=== PATIENT | male | born 1955 | race Caucasian/White ===

== ENCOUNTER 2018-09-02 15:57 | Emergency (ER) | payer OTHER, SELFPAY ==
[2018-09-02 15:58] VITALS: PULSE 77; RESP 18; TEMP 36.5; O2SAT 96; BMI 29.2
--- NOTE | 2018-09-02 16:07 | RAD_ITS ---
STUDY: X-RAY CHEST REASON FOR EXAM: Male, 62 years old. Chest pain radiating into the left arm. TECHNIQUE: Portable chest. COMPARISON: 03/07/2017. FINDINGS: The lungs are clear and expanded. There is no demonstrated pleural abnormality. Normal size heart. Normal mediastinum and tomasa. Normal visualized pulmonary arteries. Normal visualized aortic arch and descending thoracic aorta. Normal visualized thoracic spine. Normal visualized ribs, clavicles, and shoulders. There is no demonstrated abnormality of the visualized soft tissue structures of the upper abdomen. RAD/Chest 1 View (Portable) IMPRESSION: Normal x-ray examination of the chest. Electronically Signed: Suzanne Gaines MD at 16:26 EST Tel , Service support ,
--- NOTE | 2018-09-02 16:07 | EKG12_ITS ---
Test Reason : CP Blood Pressure : / mmHG Vent. Rate : 075 BPM Atrial Rate : 075 BPM P-R Int : 184 ms QRS Dur : 084 ms QT Int : 390 ms P-R-T Axes : 064 052 045 degrees QTc Int : 435 ms Normal sinus rhythm Nonspecific ST abnormality Abnormal ECG Confirmed by KATIE HOOPER, KRIS ([id number]), editorial manager HYUN THEODORE ([id number] on 09/04/2018 10:04:29 AM Referred By: BENNETT Confirmed By:KRIS WILSON MD
--- NOTE | 2018-09-02 16:16 | ED.DCSUM_ITS ---
- ER Visit Summary Date of Service: 09/02/18 Chief Complaint: Left jaw and shoulder pain post exercising History of Present Illness: The patient is a 62 M no history of coronary disease. He had a negative heart cath about 12 years ago but has had no cardiac catheter or stress test since that time. His father had coronary disease and a quadruple bypass in his 50's withseveral MIs and at age 65 of cardiac disease and TN. He states intermittently only several times in the last several months he gets left shoulder and jaw pain with exertion. No chest pain. No dyspnea. No diaphoresis. No nausea. He works out frequently and said most the time he does not have any problem. Today he did about 20 minutes on a treadmill after he was done developed left shoulder and jaw discomfort he will call if pain eventually the jaw discomfort resolved he still having some shoulder discomfort. No chest pain. No dyspnea. Physical Examination: Well-appearing male vital signs are stable. He is afebrile. His pulse ox is 96% on room air no hypoxia. HEENT exam unremarkable. Neck nontender no lymphadenopathy. Lungs clear to auscultation bilaterally. Heart regular rhythm no murmur. Rate about 75. Chest wall nontender. No ecchymosis or bruising. No subcu air. Abdomen soft nontender. Normal bowel sounds no peritoneal signs. Extremities moves all 4. Equal symmetrical radial pulses. Calves nontender without edema or cords. Neurologically is awake and alert with no focal motor or sensory deficits. Test Results: Chest x-ray no acute abnormality read by myself and the radiologist. Portable one view. EKG sinus rhythm rate of 75 no acute signs of TN or ischemia. CBC normal at 8. Hemoglobin 14. Chemistries normal creatinine 1.39. Troponin less than 0.015. Emergency Department Course and Treatment: Patient undergo a cardiac workup. P.o. aspirin. Repeat exam patient is doing well at 1700. He is symptom-free. He and I went over all his test. 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 I explained to him that my concern is this was exertional and even with a negative workup he could have underlying coronary disease. He understands that but absolutely does not want to be admitted. He is willing to sign out AGAINST MEDICAL ADVICE he has an appointment to see his primary care physician Dr. Sen Maldonado tomorrow. I will speak to the physician on-call who agreed. Treatment Plan: Signed out AMA. Continue with daily aspirin. No exercise or heavy exertion. We will see his primary care physician tomorrow and follow-up closely with provocative cardiac testing. Disposition: Discharge AMA Impression: Exertional left jaw and shoulder discomfort of uncertain etiology Signed out AMA This note was generated with [employer] dictation software. It may contain incorrect words, spelling, and punctuation that were not noted in review of the chart prior to signing ED Disposition - Plan for ED Patient: Referrals: Sen Maldonado MD [Primary Care Provider] -
[2018-09-02 16:31] LABS: Absolute Lymphocyte Count 2.38 X10^3/ul (0.83-4.51); Absolute Neutrophil Count 5.5 X10^3/uL (2.0-7.7); Basophil# 0.01 X10^3/uL; Basophil% 0.1 % (0-1); Eosinophil# 0.11 X10^3/uL; Eosinophils% 1.3 % (0-5); Hematocrit 44.2 % (40-54); Hemoglobin 14.4 g/dl (13.0-16.5); Lymphocyte # 2.38 X10^3/ul (4.0); Lymphocyte % 27.6 % (19-41); Mean Corp Hgb Conc 32.6 g/gl (32-36); Mean Corpuscular Hgb 31.3 pg (27.0-32.0); Mean Corpuscular Volume 96.1 fL (80-94); Mean Platelet Vol. 10.3 fl (6.2-12.0); Monocyte# 0.62 X10^3/uL; Monocyte% 7.2 % (0-10); Neutrophil % 63.7 % (47-70); Platelet Count 200 K/mm3 (150-450); RBC Distribution Width CV 13.2 % (11.6-14.6); White Blood Count 8.6 K/mm3 (4.4-11.0)
[2018-09-02] MEDS: Aspirin 81 MG TAB.CHEW 324 MG PO (16:38)
--- NOTE | 2018-09-02 16:38 | ED.RN ---
PT PREVIOUSLY TOOK 81 ASA. 1 81 MG TABLET HELD
[2018-09-02 16:41] LABS: POSITIVE COUNT NO; POSITIVE DIFFERENTIAL NO; POSITIVE MORPHOLOGY NO
[2018-09-02 16:45] LABS: Anion Gap 9 (5-15); BUN 15 mg/dL (7-18); BUN/Creat Ratio 10.8 RATIO (10-20); Calcium,Total 8.9 mg/dL (8.5-10.1); Chloride 101 mmol/L (98-107); Creatinine, Serum 1.39 mg/dL (0.70-1.30); EST Glomerular Filtration Rate 55 mL/min (>60); Est Glom Filt Rate - Afr Amer 67 mL/min (>60); Estimated Creatinine Clearance 70.33 ml/min; Glucose 126 mg/dL (74-106); Potassium 3.8 mmol/L (3.5-5.1); Sodium Level 141 mmol/L (136-145)
--- NOTE | 2018-09-02 17:03 | ED.DEP ---
ED Disposition - Plan for ED Patient: Disposition: Home or Assisted Living Instructions: ED Chest Pain Atypical Unkn Cause Referrals: Sen Maldonado MD [Primary Care Provider] - Keep Agustín appointment Additional Instructions: Return if feeling worse, chest pain, shortness of breath, arm pain or exertional nausea. No working out or heavy exertion until have either outpatient stress testing or heart catheterization. Continue your daily aspirin. See her primary care physician with your scheduled appointment tomorrow. Discussed with him cardiac evaluation follow-up such as either stress test or heart cath.
[2018-09-02 17:29] VITALS: BP 120/64; PULSE 65; RESP 18; O2SAT 98
== END 2018-09-02 17:30 | disposition home or self-care (01) ==
PROVIDERS: Emergency Provider Emergency Medicine; Family Provider Family Medicine; PCP Family Medicine
DX: R68.84 Jaw pain (principal); M25.512 Pain in left shoulder; Z53.21 Procedure and treatment not carried out due to patient leaving prior to being seen by health care provider; I49.3 Ventricular premature depolarization; Z79.82 Long term (current) use of aspirin; Z82.49 Family history of ischemic heart disease and other diseases of the circulatory system
CPT/HCPCS: 71045; 80048; 84484; 85025; 93005; 99285; A4216

== ENCOUNTER → 2018-09-09 06:44 | Outpatient (CLI) | payer OTHER, SELFPAY ==
[2018-09-02 15:58] VITALS: BMI 29.2
--- NOTE | 2018-09-09 09:46 | STRESSREP ---
Stress Test Report Exercise myocardial perfusion stress test. 62-year-old man with a history of chest pain. Stress protocol: Resting EKG demonstrates normal sinus rhythm with a rate of 66 bpm normal intervals are noted resting blood pressure 108/78 mmHg. The patient exercised according to the regular Carlos protocol for total duration of 6 minutes and 29 seconds. The maximum heart rate attained was 206 bpm which was a run of supraventricular tachyarrhythmia. This was 129% of maximum predicted heart rate the maximum workload was 7.7 metabolic equivalents. The test was terminated due to the supraventricular tachyarrhythmia. At rest there were no ST or T wave changes noted suggest ischemia at peak exercise and during the supraventricular tachyarrhythmia there was approximately 2.2-2.[address] depression noted in leads II, III and aVF and V3 through V6. There was ST elevation noted in aVR. Patient complained of slight shortness of breath. These returned back to baseline. The resting blood pressure 180/78 with a peak blood pressure 152/70. No clinical angina was noted. Myocardial perfusion protocol. 14.8 mCi of technetium 99m sestamibi was injected at rest. The patient exercised according to regular Carlos protocol for 6-1/2 minutes at peak exercise 44.7 mCi of technetium 99m sestamibi was injected stress images were obtained stress and rest images were reconstructed and compared in the short axis vertical long horizontal long axis. Gated images were also obtained Perfusion SPECT analysis: Review of the stress images demonstrate normal uptake of tracer noted in all areas of the myocardium. The resting images similarly demonstrate normal uptake of tracer noted in all areas of the myocardium. No areas of reversibility are noted suggest ischemia no previous infarct is noted. Gated SPECT analysis: The gated ejection fraction is noted to be 87%. Conclusion: Exercise myocardial perfusion stress test with EKG changes suggestive of ischemia in the face of a supraventricular tachyarrhythmia. Nuclear images demonstrate no evidence of ischemia. Preserved ejection fraction
== END ==
PROVIDERS: Family Provider Family Medicine; PCP Family Medicine; Referring Provider Family Medicine; Visit Provider Family Medicine
DX: M25.512 Pain in left shoulder (principal)
CPT/HCPCS: 78452; 93017; A9500; A4216

== ENCOUNTER 2018-09-13 10:44 | Day surgery (SDC) | payer OTHER, SELFPAY ==
[2018-09-11 16:10] VITALS: BMI 30.3
[2018-09-12 07:41] VITALS: BMI 30.3
--- NOTE | 2018-09-13 13:05 | CL.D_ITS ---
Patient Name: KRIS SERNA Study Date: 09/13/2018 Performing: Jeff Perez MD Ht: 77.16 inches 196 cm : 1955 Wt: 255.74 lbs 116 kg Age: 62 Gender: male BSA: 2.49 PROCEDURE(S) PERFORMED AE76-GLT/COR/LV CLINICAL PROFILE AND INDICATIONS Indications: Cardiac Arrythmia Heart Failure: None Stress/Imaging Date: 09/09/2018Stress Test with SPECT MPI: Negative CAD Presentations: Symptom unlikely to be ischemic. CONCLUSIONS Normal coronary arteries Normal LV size, wall motion,and systolic function RECOMMENDATIONS Medical therapy DESCRIPTION OF PROCEDURE The patient arrived to the procedure lab. The risks and benefits of the procedure as well as a full d escription of our services here and current unavailability of surgical backup were fully explained to the patient and/or their significant other prior to the catheterization. The Timeout was completed, verifying the correct patient and procedure. The patient's procedural site was prepped and draped in the usual fashion. Local anesthetic was given subcutaneously to right groin region with Lidocaine 2%. Using a modified Seldinger technique, arterial access was obtained via the right femoral artery, a 5 Fr sheath was inserted. Left Coronary Artery selective angiography was performed in multiple views u sing a 5 Fr. JL4 catheter. Right Coronary Artery selective angiography was then performed in multiple views using a 5 Fr. 3DRC (Michelet) catheter. Left Ventriculography was performed in ARIAS projection using a 5 Fr. Pigtail catheter.Contrast was injected through the sheath and the Right Iliac and Femoral artery were assessed for possible closure device.The arterial sheath was pulled and a Mynx closure device was deployed for hemostasis CORONARY ANGIOGRAPHY DOMINANCE: Right Dominant LEFT HEART ASSESSMENT Left Ventricular Ejection Fraction: by LV Gram 70 % Normal LV wall motion Normal Left Ventricular systolic function Normal Left Ventricular systolic function LEFT MAIN: Angiographically normal LEFT ANTERIOR DECENDING ARTERY: Angiographically normal CIRCUMFLEX ARTERY: Angiographically normal RIGHT CORONARY ARTERY: Angiographically normal COMPLICATIONS No Complications PROCEDURE MEDICATIONS Versed 1 mg IV Oxygen: 2 L/min via nasal cannula SUMMARY OF HEMODYNAMIC DATA Time AIR REST ECG 12:29:56 AO 106/64 (83) SA 12:44:34 LV 108/4, 24 12:49:52 LV 110/3, 24 12:49:59 LV 105/5, 19 12:51:16 Signed By Jeff Perez MD On 09/13/2018 1:04:43 PM Jeff Perez MD
== END 2018-09-13 15:37 | disposition home or self-care (01) ==
LOC: CLSP 10:46
PROVIDERS: Family Provider Family Medicine; PCP Family Medicine; Referring Provider Internal Medicine Cardiovascular Disease; Visit Provider Internal Medicine Cardiovascular Disease
DX: R94.39 Abnormal result of other cardiovascular function study (principal); I47.1 Supraventricular tachycardia; K21.9 Gastro-esophageal reflux disease without esophagitis; E66.9 Obesity, unspecified; Z68.30 Body mass index [BMI] 30.0-30.9, adult; Z79.82 Long term (current) use of aspirin; Z82.49 Family history of ischemic heart disease and other diseases of the circulatory system
CPT/HCPCS: 93458; 99152; 99153; C1760; J7040; Q9967

== ENCOUNTER → 2019-02-08 07:38 | Outpatient (CLI) | payer OTHER, SELFPAY ==
[2018-09-12 07:41] VITALS: BMI 30.3
[2019-02-08 08:46] LABS: Anion Gap 6 (5-15); BUN 17 mg/dL (7-18); BUN/Creat Ratio 14.7 RATIO (10-20); Calcium,Total 8.7 mg/dL (8.5-10.1); Chloride 107 mmol/L (98-107); Creatinine, Serum 1.16 mg/dL (0.70-1.30); EST Glomerular Filtration Rate 68 mL/min (>60); Est Glom Filt Rate - Afr Amer 82 mL/min (>60); Glucose 102 mg/dL (74-106); PSA,Total - Annual Screen 2.07 ng/mL (0.00-4.00); Potassium 3.9 mmol/L (3.5-5.1); Sodium Level 142 mmol/L (136-145)
== END ==
PROVIDERS: Family Provider Family Medicine; PCP Family Medicine; Referring Provider Family Medicine; Visit Provider Family Medicine
DX: Z12.5 Encounter for screening for malignant neoplasm of prostate (principal); K21.9 Gastro-esophageal reflux disease without esophagitis
CPT/HCPCS: 36415; 80048; 84153; G0103

== ENCOUNTER → 2021-03-08 06:05 | Outpatient (CLI) | payer BC, SELFPAY ==
[2021-03-08 08:01] LABS: ALB/GLOB Ratio 0.9 RATIO (0.9-2.4); AST(SGOT) 13 U/L (15-37); Alanine Aminotransfer ALT/SGPT 24 U/L (16-61); Albumin, Serum 3.6 g/dL (3.2-5.0); Alkaline Phosphatase 87 U/L (45-117); Anion Gap 4 (5-15); BUN 16 mg/dL (7-18); BUN/Creat Ratio 15.1 RATIO (10-20); Calcium,Total 8.2 mg/dL (8.5-10.1); Chloride 107 mmol/L (98-107); Cholesterol 147 mg/dL (200); Creatinine, Serum 1.06 mg/dL (0.70-1.30); EST Glomerular Filtration Rate 75 mL/min (>60); Est Glom Filt Rate - Afr Amer 90 mL/min (>60); Globulin 3.8 g/dL (2.2-4.2); Glucose 98 mg/dL (74-106); High Density Lipoprotein 53 mg/dL; Potassium 3.8 mmol/L (3.5-5.1); Protein, Total 7.4 g/dL (6.4-8.2); Sodium Level 139 mmol/L (136-145); Triglycerides 100 mg/dL; Very Low Density Lipoprotein 20 mg/dL (5-40)
== END ==
PROVIDERS: PCP Family Medicine; Referring Provider Family Medicine; Visit Provider Family Medicine
DX: Z13.220 Encounter for screening for lipoid disorders (principal); Z12.5 Encounter for screening for malignant neoplasm of prostate
CPT/HCPCS: 36415; 80053; 80061; 84153; G0103

== ENCOUNTER 2021-08-31 07:53 | Outpatient (CLI) | payer BC, SELFPAY ==
--- NOTE | 2021-08-31 08:00 | ECHOCS_ITS ---
Version 2 Reason For Study: Afib, Aflutter Procedure This was a 2D Doppler, Color Flow transthoracic echocardiogram. Contrast injection was performed. Exam performed in department. Left Ventricle Normal LV size. Left ventricular systolic function is normal. The estimated ejection fraction is 55 %. Stage 1 diastolic dysfunction. No regional wall motion abnormalities noted. Right Ventricle Normal RV size. Normal systolic function. Atria Normal left atrium. Normal right atrium. Bubble contrast study negative for right to left interatrial shunt. Mitral Valve Normal mitral valve. Tricuspid Valve Normal tricuspid valve. Aortic Valve Trisinus/trileaflet aortic valve. Pulmonic Valve Normal pulmonic valve. Great Vessels Normal aortic root. The pulmonary artery is normal size. Normal inferior vena cava. Pericardium/Pleural No pericardial effusion. Medication Performed a rapid injection of agitated mix of 9 cc saline and 1cc air to assess for atrial septal defect. Diluted definity 2ml given slow IV push to enhance endocardial definition. MMode/2D Measurements & Calculations LVIDd: 4.7 cm IVSd: 0.91 cm Ao root diam: 3.5 cm LVIDs: 2.7 cm LVPWd: 0.81 cm RVDd: 3.3 cm FS: 43.6 % LAV(MOD-bp): 42.3 ml LVAd ap4: 32.9 cm2 SV(MOD-sp4): 72.7 ml LAV(MOD-bp) Indexed: 16.8 ml/m2 LVLd ap4: 8.2 cm LAV(MOD-sp2): 51.6 ml EDV(MOD-sp4): 108.4 ml LAV(MOD-sp4): 34.1 ml EDV(sp4-el): 112.5 ml LVAs ap4: 16.1 cm2 LVLs ap4: 6.0 cm ESV(MOD-sp4): 35.6 ml ESV(sp4-el): 36.3 ml EF(MOD-sp4): 67.1 % EF(sp4-el): 67.7 % SV(sp4-el): 76.2 ml LA A4 area: 15.2 cm2 LA dimension(2D): 4.6 cm RA A4 area: 13.5 cm2 Doppler Measurements & Calculations MV E max abel: 61.5 cm/sec Lat Peak E' Abel: 7.7 cm/sec Med Peak E' Abel: 9.0 cm/sec MV A max abel: 55.5 cm/sec E/E' lat: 7.9 E/E' med: 6.9 MV E/A: 1.1 Ao V2 max: 120.2 cm/sec LV V1 max: 102.3 cm/sec PA V2 max: 92.5 cm/sec Ao max P.8 mmHg LV V1 max P.2 mmHg Ao V2 mean: 84.4 cm/sec Ao mean P.2 mmHg Ao V2 VTI: 25.5 cm PI end-d abel: 79.0 cm/sec ECHO/Echo Complete W/ Contrast Interpretation Summary Normal LV size. Left ventricular systolic function is normal. The estimated ejection fraction is 55 %. Stage 1 diastolic dysfunction. Bubble contrast study negative for right to left interatrial shunt. Contrast injection was performed. Ordering Physician: Sen Barba Referring Physician: Sen Ames Performed By: Arabella Barba, AUBRIECS, RVT
== END 2021-08-31 23:59 | disposition home or self-care (01) ==
PROVIDERS: PCP Family Medicine; Referring Provider Nurse Practitioner Family; Visit Provider Nurse Practitioner Family
DX: I48.91 Unspecified atrial fibrillation (principal); I48.92 Unspecified atrial flutter
CPT/HCPCS: 93306; Q9957; A4216; C8929

== ENCOUNTER → 2022-03-29 | Outpatient (CLI) | payer BC, SELFPAY ==
[2022-03-29 06:35] LABS: Absolute Lymphocyte Count 2.13 X10^3/uL (0.83-4.51); Basophil# 0.01 X10^3/uL; Basophil% 0.1 % (0-1); Eosinophil# 0.16 X10^3/uL; Eosinophils% 2.3 % (0-5); Hematocrit 42.7 % (40-54); Hemoglobin 14.1 g/dL (13.0-16.5); Lymphocyte # 2.13 X10^3/ul (0.83-4.51); Lymphocyte % 30.9 % (19-41); Mean Corpuscular Hgb 31.3 pg (27.0-32.0); Mean Corpuscular Volume 94.9 fL (80-94); Mean Platelet Vol. 9.3 fl (6.2-12.0); Monocyte# 0.58 X10^3/uL; Monocyte% 8.4 % (0-10); NRBC Flagged by Analyzer 0 % (0-5); Platelet Count 166 K/mm3 (150-450); RBC Distribution Width SD 45.1 fl (35.1-43.9); White Blood Count 6.9 K/mm3 (4.4-11.0)
[2022-03-29 07:17] LABS: ALB/GLOB Ratio 0.9 RATIO (0.9-2.4); AST(SGOT) 20 U/L (15-37); Alanine Aminotransfer ALT/SGPT 33 U/L (16-61); Albumin, Serum 3.3 g/dL (3.2-5.0); Alkaline Phosphatase 84 U/L (45-117); Anion Gap 7 (5-15); BUN 17 mg/dL (7-18); BUN/Creat Ratio 14.2 RATIO (10-20); Calcium,Total 8.6 mg/dL (8.5-10.1); Chloride 109 mmol/L (98-107); Cholesterol 139 mg/dL (200); EST Glomerular Filtration Rate 65 mL/min (>60); Est Glom Filt Rate - Afr Amer 78 mL/min (>60); Globulin 3.7 g/dL (2.2-4.2); Glucose 115 mg/dL (74-106); High Density Lipoprotein 40 mg/dL; PSA,Total - Annual Screen 2.15 ng/mL (0.00-4.00); Potassium 3.6 mmol/L (3.5-5.1); Sodium Level 144 mmol/L (136-145); Thyroid Stim Hormone (TSH) 2.74 uIU/mL (0.358-3.74); Triglycerides 167 mg/dL; Very Low Density Lipoprotein 33 mg/dL (5-40)
== END | disposition home or self-care (01) ==
LOC: LAB 06:16
PROVIDERS: PCP Family Medicine; Referring Provider Family Medicine; Visit Provider Family Medicine
DX: Z00.00 Encounter for general adult medical examination without abnormal findings (principal); Z13.0 Encounter for screening for diseases of the blood and blood-forming organs and certain disorders involving the immune mechanism; Z13.1 Encounter for screening for diabetes mellitus; Z13.220 Encounter for screening for lipoid disorders; Z12.5 Encounter for screening for malignant neoplasm of prostate; Z13.29 Encounter for screening for other suspected endocrine disorder
CPT/HCPCS: 36415; 80053; 80061; 83036; 84153; 84443; 85025; G0103

== ENCOUNTER 2022-06-14 16:23 | Emergency (ER) | payer BC, SELFPAY ==
[2022-06-14 16:23] VITALS: BP 125/89; PULSE 147; RESP 14; TEMP 36.9; O2SAT 95
[2022-06-14 16:24] VITALS: BP 119/74; PULSE 130; RESP 18; TEMP 36; O2SAT 97; BMI 33.2
[2022-06-14 17:23] VITALS: BP 119/90; PULSE 112; RESP 20; TEMP 36.7; O2SAT 94; O2SAT 95
--- NOTE | 2022-06-14 17:23 | EKG12_ITS ---
Test Reason : PALPS Blood Pressure : / mmHG Vent. Rate : 135 BPM Atrial Rate : 135 BPM P-R Int : 122 ms QRS Dur : 096 ms QT Int : 272 ms P-R-T Axes : 084 022 -36 degrees QTc Int : 408 ms Atrial fibrillation Nonspecific T wave abnormality Abnormal ECG Confirmed by JORDANA HOOPER, ADRYAN ([id number]), visual effects editor ANNA MARTINEZ ([id number]) on 06/20/2022 10:10:59 AM Referred By: PAM Confirmed By:MARKUS SILVEIRA MD
--- NOTE | 2022-06-14 17:36 | RAD_ITS ---
STUDY: X-RAY CHEST REASON FOR EXAM: Male, 66 years old. chest pain TECHNIQUE: Single AP portable view of the chest. COMPARISON: 09/02/2018 FINDINGS: Poor inspiration with some bibasilar atelectasis. There is no demonstrated pleural abnormality. Normal size heart. Normal mediastinum and tomasa. Normal visualized pulmonary arteries. Normal visualized aortic arch and descending thoracic aorta. Normal visualized thoracic spine. Normal visualized ribs, clavicles, and shoulders. There is no demonstrated abnormality of the visualized soft tissue structures of the upper abdomen. RAD/Chest 1 View (Portable) IMPRESSION: Poor inspiration with bibasilar atelectasis. Electronically Signed: Kei Sandoval MD at 17:48 EST ,
[2022-06-14 17:41] LABS: Absolute Neutrophil Count 6.4 X10^3/uL (2.0-7.7); Basophil# 0.02 X10^3/uL; Basophil% 0.2 % (0-1); Hematocrit 44.5 % (40-54); Hemoglobin 14.8 g/dL (13.0-16.5); Lymphocyte % 23.7 % (19-41); Mean Corp Hgb Conc 33.3 g/dL (32-36); Mean Corpuscular Hgb 31.1 pg (27.0-32.0); Mean Corpuscular Volume 93.5 fL (80-94); Mean Platelet Vol. 10.1 fl (6.2-12.0); Monocyte# 0.85 X10^3/uL; Monocyte% 8.8 % (0-10); NRBC Flagged by Analyzer 0 % (0-5); Neutrophil # 6.41 X10^3/uL (2.7-7.7); Platelet Count 197 K/mm3 (150-450); RBC Distribution Width CV 12.9 % (11.6-14.6); RBC Distribution Width SD 44.5 fl (35.1-43.9); Red Blood Count 4.76 M/mm3 (4.6-6.2); White Blood Count 9.7 K/mm3 (4.4-11.0)
--- NOTE | 2022-06-14 17:49 | EKG12_ITS ---
Test Reason : REPEAT Blood Pressure : / mmHG Vent. Rate : 080 BPM Atrial Rate : 080 BPM P-R Int : 172 ms QRS Dur : 082 ms QT Int : 386 ms P-R-T Axes : 044 012 031 degrees QTc Int : 445 ms Normal sinus rhythm Normal ECG Confirmed by JORDANA HOOPER, ADRYAN ([id number]), magazine editor ANNA MARTINEZ ([id number]) on 06/20/2022 10:11:44 AM Referred By: TL Confirmed By:MARKUS SILVEIRA MD
--- NOTE | 2022-06-14 17:57 | EX.ED.DYSGE1 ---
HPI History of Present Illness Chief Complaint: Palpitations Informant: patient Narrative Narrative: Presents for concerns for atrial fibrillation. History atrial fibrillation 6 to 7 months ago found on his apple watch. He is asymptomatic then. He followed by Dr. Perez, reported had planned cardioversion however converted prior to event. He was continued on metoprolol. He never started anticoagulation medicines except for baby aspirin. He was provided flecainide to use as needed. Yesterday apple watch no heart rate in the 175 with A. fib. Denies recent illness or cough denies chest pains. Denies lightheaded symptoms. He took 2 dose of flecainide 1 yesterday and 1 today. He is on metoprolol 50 mg extended release. Denies recent vomiting or diarrhea. Prior similar symptoms: Yes PFSH PFSH Medical History Abnormal stress electrocardiogram test using treadmill Atrial fibrillation by electrocardiogram Body aches after vaccination Chest pain Contact with or suspected exposure to other viral communicable disease COVID-19 GERD (gastroesophageal reflux disease) Obesity Paroxysmal supraventricular tachycardia Premature ventricular contractions Home Medications aspirin 81 mg tablet,delayed release (Adult Aspirin Regimen) 81 mg PO QDAY #30 tabs 08/11/21 [Rx Last Taken 06/14/22 08:00] flecainide 100 mg tablet 100 mg PO Q12H PRN tachycardia #14 tabs 09/05/21 [Rx Last Taken 06/14/22 08:00] omeprazole 40 mg capsule,delayed release 40 mg PO DAILY 05/23/22 [History Last Taken 06/14/22 08:00] metoprolol succinate 50 mg tablet,extended release 24 hr 50 mg PO DAILY 06/14/22 [History Last Taken 06/14/22 08:00] Allergy/AdvReac Type Severity Reaction Status Date / Time lactose [lactose intolerant] AdvReac GI ISSUES Verified 06/14/22 16:25 Family History Mother Colon cancer, Onset Age: 50 Father CAD (coronary artery disease), Onset Age: 70 CABG age 55, couple [place] Diabetes Brother Diabetes Hypertension Surgical History History of electrophysiologic study (2006) History of left heart catheterization (09/13/18) History of wisdom tooth extraction Normal colonoscopy (2018) Social History Smoking Status: Never smoker alcohol intake: current alcohol intake frequency: holidays/special occasions only caffeine: Yes Type: coffee Number of servings: 2 ROS ROS ED Constitutional Constitutional ED: Denies chills, fever(s) or sweats Eyes Eyes: Denies change in vision ENT ENT ED: Denies dysphagia or sore throat Cardiovascular Cardiovascular: Denies chest pain, leg edema, palpitations or racing heartbeat Respiratory/Chest Respiratory/Chest: Denies cough, dyspnea or dyspnea on exertion Gastrointestinal Gastrointestinal: Denies abdominal pain, diarrhea, nausea or vomiting Genitourinary Genitourinary ED: Denies dysuria, hematuria or urinary frequency Musculoskeletal Musculoskeletal: Denies back pain, extremity pain or neck pain Integumentary Denies rash or wounds Neurologic Neurologic: Denies headache(s), paresthesias or weakness EXAM Physical Exam Const Vital Signs: 06/14/22 16:24 06/14/22 16:23 06/14/22 16:43 Temperature 96.8 F L 98.4 F Temperature Source Temporal Temporal Pulse Rate 130 H 147 H Respiratory Rate 18 14 Respiratory Effort Normal Non-Labored Respiratory Pattern Normal Blood Pressure 119/74 125/89 H Blood Pressure Mean 89 101 Pulse Ox 97 95 Oxygen Delivery Method Room Air Room Air 06/14/22 17:23 06/14/22 17:23 06/14/22 18:00 Temperature 98.0 F 98.6 F Temperature Source Temporal Temporal Pulse Rate 112 H 108 H Respiratory Rate 20 H 18 Respiratory Effort Respiratory Pattern Blood Pressure 119/90 H 123/89 H Blood Pressure Mean 99 100 Pulse Ox 95 94 95 Oxygen Delivery Method Room Air Room Air Room Air 06/14/22 18:20 Temperature 98.5 F Temperature Source Pulse Rate 85 Respiratory Rate 16 Respiratory Effort Respiratory Pattern Blood Pressure 110/83 H Blood Pressure Mean Pulse Ox 96 Oxygen Delivery Method Positive well nourished and well developed General Appearance ED: well developed and NAD HEENT Reports moist mucous membranes normocephalic and atraumatic Eyes PERRL, EOMs intact bilaterally and conjunctivae normal General Eye ED: Yes normal appearance of both eyes Neck no lymphadenopathy and supple General: Negative for tenderness Chest Wall Chest: Negative for tenderness Resp normal respiratory effort and normal air movement Effort and Inspection: symmetric chest movement; Negative for respiratory distress Cardio no murmurs Rate: tachycardic Rhythm: abnormal rhythm Peripheral Pulses: pulses 2+ throughout GI normal to inspection, nondistended, normoactive bowel sounds and non-tender Palpation: Negative for guarding or rebound tenderness present Back/Spine no CVA tenderness and no thoracic nor lumbar tenderness Extremity normal to inspection General Extremety ED: Negative for edema or tenderness General Extremity: Negative for edema Neuro oriented x3 and no sensory deficits noted Sensorium / Orientation: awake and alert Skin no rashes or lesions noted and no wounds MDM MDM MDM Narrative Medical decision making narrative: Patient tachycardic on arrival EKG reading sinus tach with PVCs however there is some abnormal rhythms more concerning for A. fib. In the monitor he is irregular heart rate in the 140s. However during evaluation discussion he converted on the monitor to sinus rhythm repeat EKG shows this. 1 view chest x-ray reviewed by myself read by radiology shows no acute process. Labs were ordered and pending. 1814: Labs stable. Remains sinus rhythm on the monitor rate of 80. I spoke with his client relations specialist Dr. Perez, he will continue his metoprolol he will continue flecainide at this time twice a day. He will follow-up as an outpatient. All questions were answered. Lab Data Attestation: I reviewed the patient's lab results. Labs: Laboratory Results - last 24 hr 06/14/22 06/14/22 17:00 17:00 WBC 9.7 RBC 4.76 Hgb 14.8 Hct 44.5 MCV 93.5 MCH 31.1 MCHC 33.3 RDW Std Deviation 44.5 H RDW Coeff of [place] 12.9 Plt Count 197 MPV 10.1 Immature Gran % (Auto) 0.300 Neut % (Auto) 66.0 Lymph % (Auto) 23.7 [place] % (Auto) 8.8 Eos % (Auto) 1.0 Baso % (Auto) 0.2 Absolute Neuts (auto) 6.4 Absolute Lymphs (auto) 2.30 Nucleated RBC % 0 Sodium 138 Potassium 3.9 Chloride 106 Carbon Dioxide 26.0 Anion Gap 6 BUN 13 Creatinine 1.16 Estim Creat Clear Calc 80.01 Est GFR (MDRD) Af Amer 81 Est GFR (MDRD) Non-Af 67 BUN/Creatinine Ratio 11.2 Glucose 105 Calcium 8.5 Troponin I High Sens 6 Radiography Diagnostic Testing: Clinical Impression(s) from Imaging Studies Chest X-Ray 06/14/22 17:36 IMPRESSION: Poor inspiration with bibasilar atelectasis. Electronically Signed: Kei Sandoval MD at 17:48 EST Reading Location ID and State: [facility] / [place] Tel , Service support , EKG Initial EKG: Attestation: I personally reviewed and interpreted this EKG as follows: Comments: Atrial fibrillation rate of 135, no ST changes Follow-up EKG: Attestation: I personally reviewed and interpreted this EKG as follows: Comments: At 1754: Sinus rhythm rate of 80, no ST changes. Discharge Plan Triage Chief Complaint: Palpitations ED Provider: Ede Harry Dx/Rx/DC Orders Clinical Impression: Atrial fibrillation, currently in sinus rhythm Instructions: ED AFIB Prescriptions: No Action aspirin [Adult Aspirin Regimen] 81 mg tablet,delayed release (DR/EC) 81 mg PO QDAY Qty: 30 11RF omeprazole 40 mg capsule,delayed release(DR/EC) 40 mg PO DAILY metoprolol succinate 50 mg tablet extended release 24 hr 50 mg PO DAILY flecainide 100 mg tablet 100 mg PO Q12H PRN (Reason: tachycardia) Qty: 14 3RF Primary Care Provider: Kate Atwood Referrals: Jeff Perez MD [Med Staff - Active Staff] - 1-2 Weeks Kate Atwood DO [Primary Care Provider] - Activity Restrictions/Additional Instructions: Atrial fibrillation spontaneous conversion. Continue your metoprolol and baby aspirin. Continue your flecainide at this time. Follow-up with Dr. Perez. Disposition Disposition: Home, Self Care Discharge Date/Time: 06/14/22 18:35
[2022-06-14 18:00] VITALS: BP 123/89; PULSE 108; RESP 18; TEMP 37; O2SAT 95
[2022-06-14 18:00] LABS: Anion Gap 6 (5-15); BUN 13 mg/dL (7-18); BUN/Creat Ratio 11.2 RATIO (10-20); Calcium,Total 8.5 mg/dL (8.5-10.1); Chloride 106 mmol/L (98-107); Creatinine, Serum 1.16 mg/dL (0.70-1.30); EST Glomerular Filtration Rate 67 mL/min (>60); Est Glom Filt Rate - Afr Amer 81 mL/min (>60); Estimated Creatinine Clearance 80.01 ml/min; Glucose 105 mg/dL (74-106); Potassium 3.9 mmol/L (3.5-5.1); Sodium Level 138 mmol/L (136-145); Troponin-I HS (w/2H Reflex) 6 pg/mL (3.0-78.0)
[2022-06-14 18:20] VITALS: BP 110/83; PULSE 85; RESP 16; TEMP 36.9; O2SAT 96
[2022-06-14 19:34] LABS: Reflex Troponin-HS? (from REC) Y
== END 2022-06-14 18:35 | disposition home or self-care (01) ==
PROVIDERS: Emergency Provider Emergency Medicine; PCP Family Medicine; Visit Provider Emergency Medicine
DX: I48.91 Unspecified atrial fibrillation (principal); R00.2 Palpitations; Z79.82 Long term (current) use of aspirin
CPT/HCPCS: 71045; 80048; 84484; 85025; 93005; 99284; A4216

== ENCOUNTER 2023-03-19 07:55 | Day surgery (SDC) | payer OTHER, SELFPAY ==
[2023-03-19] VITALS (7 sets, daily range): BP systolic 80–124; BP diastolic 51–75; PULSE 69–83; RESP 16–93; TEMP 36.1–36.9; O2SAT 92–97; BMI 33.3
--- NOTE | 2023-03-19 | COLBX_PTH ---
PATIENT: KRIS SERNA LOC: EN U#:[id number] AGE/SX: 67/M ROOM: RE03/19/[address]: Dr. Philip Fonseca DO : 1955 BED: DIS: 03/19/2023 SPEC #: [id number] RECD: 03/19/23 12:31 STATUS: AMY ASHLEY #: [id number] ZAFAR: 03/19/23 00:[address]: Philip Fonseca DEPT: SURGICAL PATHOLOGY RECD BY: Angel Cardona ENTERED: 03/19/23 12:31 SP TYPE: COLON BX OTHR DR: Kate Atwood DO Tissues: COLON BIOPSY Procedures: Surgery Specimen Level IV HEADER OPERATION: Colonoscopy - open access (MAC), polypectomy PRE-OP DIAGNOSIS: Screening TISSUE SUBMITTED: Hepatic flexure polyp MICROSCOPIC DIAGNOSIS Hepatic flexure polyp, polypectomy: Fragments of tubular adenoma. SJ:chantal 03/20/2023 MICROSCOPIC DESCRIPTION Slides are reviewed. GROSS DESCRIPTION Received in fixative is one container labeled with the patient's name and designated hepatic flexure polyp. The specimen consists of multiple irregular fragments of light [place]ack soft tissue that in aggregate measure 0.3 x 0.3 x 0.1 cm. The specimen is totally submitted in one cassette. / SJ:rg 03/19/2023 TC:1 CPT: 47223
[2023-03-19] MEDS: Lactated Ringers 1,000 ML 15 ML IV (08:30)
--- NOTE | 2023-03-19 09:28 | PCM.HP.STD ---
HPI - General General Date of Admission: 03/19/23 Date of Service: 03/19/23 Chief Complaint: Family history of colon cancer HPI Leonides SERNA, is a 67 M who presents today for screening colonoscopy. He had a colonoscopy approximately 5 years ago and that was normal. His mother was diagnosed with colon cancer at less than age 50. He has a history of paroxysmal supraventricular tachycardia and paroxysmal atrial for patient. He is on aspirin, flecainide and metoprolol. He also has a history of GERD and takes omeprazole on a daily basis. All other 16 review systems are negative except those pertinent positive mentioned HPI. [facility] Medical History (Updated 03/16/23 @ 09:05 by Kailee Phan) Abnormal stress electrocardiogram test using treadmill Alcohol use Atrial fibrillation by electrocardiogram Body aches after vaccination Cardiology follow-up encounter Chest pain Contact with or suspected exposure to other viral communicable disease COVID-19 Gastric reflux GERD (gastroesophageal reflux disease) History of echocardiogram History of irregular heartbeat History of steroid therapy History of stress test Non-smoker Obesity PAF (paroxysmal atrial fibrillation) Paroxysmal supraventricular tachycardia Premature ventricular contractions Wears contact lenses Wears glasses Home Medications aspirin 81 mg tablet,delayed release (Adult Aspirin Regimen) 81 mg PO QDAY #30 tabs 08/11/21 [Rx Last Taken 06/14/22 08:00] omeprazole 40 mg capsule,delayed release 40 mg PO DAILY 05/23/22 [History Last Taken 06/14/22 08:00] metoprolol succinate 50 mg tablet,extended release 24 hr 50 mg PO DAILY #90 tabs 08/17/22 [Rx Last Taken Unknown] flecainide 100 mg tablet 100 mg PO Q12H PRN tachycardia 03/16/23 [History Last Taken Unknown] Allergy/AdvReac Type Severity Reaction Status Date / Time lactose [lactose intolerant] AdvReac GI ISSUES Verified 03/16/23 09:00 Family History Mother Colon cancer, Onset Age: 50 Father CAD (coronary artery disease), Onset Age: 70 CABG age 55, couple [place] Diabetes Brother Diabetes Hypertension Surgical History History of cardiac catheterization History of electrophysiologic study (2006) History of left heart catheterization (09/13/18) History of wisdom tooth extraction Normal colonoscopy (2018) Social History Smoking Status: Never smoker alcohol intake: current alcohol intake frequency: holidays/special occasions only substance use type: does not use caffeine: Yes Type: coffee Number of servings: 2 ROS Review of Systems ROS Unobtainable: other Constitutional Constitutional: Denies fatigue, fever(s), poor appetite, weight gain or weight loss ENT HEENT: Denies mouth lesions Cardiovascular Cardiovascular: Denies abdominal bloating, abdominal edema or abdominal pain Respiratory/Chest Respiratory/Chest: Denies change in mental status, change in phlegm color, chest congestion or chest tightness Gastrointestinal Gastrointestinal: Denies belching, bloating, change in bowel habits, change in stool character, chewing difficulty, coffee ground emesis, constipation, cramping, diarrhea, dyspepsia, dysphagia, early satiety, excessive flatus, fecal incontinence, heartburn, hematemesis, hematochezia, hemorrhoids, loose stools, melena, nausea, odynophagia, rectal bleeding, tenesmus, vomiting or weight changes Genitourinary Genitourinary: Denies abdominal discomfort, burning urination or itching Musculoskeletal Musculoskeletal: Reports as per HPI; Denies muscle weakness or myalgias Integumentary Integumentary: Denies jaundice Neurologic Neurologic: Denies lack of coordination or weakness Psychiatric Psychiatric: Denies confusion, depression, memory loss, mood swings, paranoia or suicidal ideation Endocrine Endocrinology: Denies systems reviewed and no addt'l complaints, except as documented Hematologic/Lymphatic Hematologic/Lymphatic: Denies anemia, easy bleeding, easy bruising or lymphadenopathy Allergic/Immunologic Allergic/Immunologic: Denies systems reviewed and no addt'l complaints, except as documented Vital Signs Vital Signs Vital Signs: 03/19/23 08:19 03/19/23 08:19 Temperature 98.4 F Temperature Source Temporal Pulse Rate 83 Respiratory Rate 16 Respiratory Pattern Normal Blood Pressure 124/73 H Blood Pressure Mean 90 Blood Pressure Source Monitor Blood Pressure Position Sitting Blood Pressure Location Left Arm Pulse Ox 97 Oxygen Delivery Method Room Air Weight Weight: 281 lb 1.43 oz Body Mass Index (BMI) 33.3 Physical Exam Const alert General Appearance: cooperative Orientation / Consciousness: oriented to person HEENT hearing grossly normal bilaterally Head and Scalp: normal to inspection Face and Sinus: face symmetric Nose: external nose normal Mouth: oral and palatal mucosa normal Eyes conjunctivae normal General Eye: normal appearance of both eyes Neck full ROM General: normal visual inspection Lymph Lymphatic: no lymphadenopathy noted Chest inspection of chest normal and palpation of chest normal Chest: symmetrical chest wall rise Resp normal respiratory effort Effort and Inspection: able to speak in complete sentences Cardio regular rate GI non-distended Percussion: normal to percussion Rectal Exam: deferred Neuro Speech: speech normal Gait (Neuro): normal gait Assessment & Plan Assessment/Plan (1) Encounter for screening for malignant neoplasm of colon: PLAN: Plan He was explained alternatives, risk, benefits including not withstanding bleeding, infection, sepsis, perforation, need for emergent surgery . He will have an ASA of 3.
--- NOTE | 2023-03-19 09:51 | OP.COLON_ITS ---
Patient Name: Jeremy Yañez Procedure Date: 03/19/2023 9:27 AM Date of : 1955 Age: 67 Procedure: Colonoscopy Indications: Screening in patient at increased risk: Family history of 1st-degree relative with colorectal cancer before age 60 years Providers: Philip Fonseca DO Referring MD: Philip Fonseca DO Medicines: Monitored Anesthesia Care Patient Profile: This is a 67 year old male. Refer to note in patient chart for documentation of history and physical. Last Colonoscopy: 5 years ago. Complications: No immediate complications. Procedure: Pre-Anesthesia Assessment: - Prior to the procedure, a History and Physical was performed, and patient medications and allergies were reviewed. The patient is competent. The risks and benefits of the procedure and the sedation options and risks were discussed with the patient. All questions were answered and informed consent was obtained. Patient identification and proposed procedure were verified by the physician. Mental Status Examination: normal. Prophylactic Antibiotics: The patient does not require prophylactic antibiotics. Prior Anticoagulants: The patient has taken no anticoagulant or antiplatelet agents. After reviewing the risks and benefits, the patient was deemed in satisfactory condition to undergo the procedure. The anesthesia plan was to use monitored anesthesia care (MAC). Immediately prior to administration of medications, the patient was re-assessed for adequacy to receive sedatives. The heart rate, respiratory rate, oxygen saturations, blood pressure, adequacy of pulmonary ventilation, and response to care were monitored throughout the procedure. The physical status of the patient was re-assessed after the procedure. After I obtained informed consent, the scope was passed under direct vision. Throughout the procedure, the patient's blood pressure, pulse, and oxygen saturations were monitored continuously. The Colonoscope was introduced through the anus and advanced to the cecum, identified by appendiceal orifice and ileocecal valve. The colonoscopy was performed without difficulty. The patient tolerated the procedure well. The quality of the bowel preparation was adequate. Scope In: 9:34:24 AM Scope Withdrawal Time 0 hours 7 minutes 38 seconds Scope Out: 9:44:07 AM Total Procedure Duration Time 0 hours 9 minutes 43 seconds Findings: The perianal and digital rectal examinations were normal. A few small and large-mouthed diverticula were found in the recto-sigmoid colon and sigmoid colon. An 8 mm polyp was found in the hepatic flexure. The polyp was sessile. The polyp was removed with a hot snare. Resection and retrieval were complete. Verification of patient identification for the specimen was done. Estimated blood loss was minimal. A small amount of stool was found in the rectum, in the sigmoid colon and in the cecum. Impression: - Diverticulosis in the recto-sigmoid colon and in the sigmoid colon. - One 8 mm polyp at the hepatic flexure, removed with a hot snare. Resected and retrieved. - Stool in the rectum, in the sigmoid colon and in the cecum. Recommendation: - Discharge patient to home. - Resume previous diet. - Continue present medications. - Await pathology results. - Repeat colonoscopy in 5 years for surveillance. Procedure Code(s): --- Professional --- 31508, Colonoscopy, flexible; with removal of tumor(s), polyp(s), or other lesion(s) by snare technique CPT copyright 2021 [employer]. All rights reserved. The codes documented in this report are preliminary and upon surgical coder review may be revised to meet current compliance requirements. Philip Fonseca DO 03/19/2023 9:51:05 AM This report has been signed electronically. Number of Addenda: 0 Note Initiated On: 03/19/2023 9:27 AM
--- NOTE | 2023-03-19 09:51 | OP.CCLET_ITS ---
03/19/2023 Kate Atwood Do Re : Colonoscopy procedure for Jeremy Yañez Dear Rai This procedure was performed on Sunday, March 19, 2023. My impressions and recommendations are as follows: Impressions : - Diverticulosis in the recto-sigmoid colon and in the sigmoid colon. - One 8 mm polyp at the hepatic flexure, removed with a hot snare. Resected and retrieved. - Stool in the rectum, in the sigmoid colon and in the cecum. Recommendations : - Discharge patient to home. - Resume previous diet. - Continue present medications. - Await pathology results. - Repeat colonoscopy in 5 years for surveillance. My findings are described in the full procedure note, which is enclosed. If I can be of further assistance, please feel free to contact me at . Sincerely, Philip Fonseca, 03/19/2023 9:51:05 AM This report has been signed electronically.
== END 2023-03-19 10:41 | disposition home or self-care (01) ==
LOC: EN 07:56 → AC 07:58
PROVIDERS: PCP Family Medicine; Referring Provider Family Medicine; Visit Provider Internal Medicine Gastroenterology
PROC: 0DJD8ZZ Inspection of Lower Intestinal Tract, Via Natural or Artificial Opening Endoscopic (ICD-10-PCS; CPT 45378; principal; 2023-03-19 08:55)
DX: Z12.11 Encounter for screening for malignant neoplasm of colon (principal); I47.1 Supraventricular tachycardia; I48.0 Paroxysmal atrial fibrillation; D12.3 Benign neoplasm of transverse colon; K21.9 Gastro-esophageal reflux disease without esophagitis; K57.30 Diverticulosis of large intestine without perforation or abscess without bleeding; E66.9 Obesity, unspecified; Z68.33 Body mass index [BMI] 33.0-33.9, adult; Z79.82 Long term (current) use of aspirin; Z79.899 Other long term (current) drug therapy; Z86.16 Personal history of COVID-19; Z80.0 Family history of malignant neoplasm of digestive organs
CPT/HCPCS: 45385; 88305; J7120; J2405

== ENCOUNTER 2023-05-02 06:30 | Emergency (ER) | payer OTHER, SELFPAY ==
[2023-05-02 06:31] VITALS: BP 128/84; PULSE 78; RESP 16; TEMP 35.8; O2SAT 97; BMI 32.8
--- NOTE | 2023-05-02 06:55 | RAD_ITS ---
EXAM: XR CHEST, 1 VIEW CLINICAL INDICATION: chest pain chest pain TECHNIQUE: Frontal view of the chest. COMPARISON: Chest x-ray 06/14/2022. FINDINGS: LUNGS AND PLEURAL SPACES: Unremarkable. No consolidation or edema. No pneumothorax. No effusion. HEART: Unremarkable. Cardiac silhouette not enlarged. MEDIASTINUM: Central airways and mediastinal contour are unremarkable. BONES/JOINTS: Unremarkable. SOFT TISSUES: Unremarkable. RAD/Chest 1 View (Portable) IMPRESSION: No radiographic evidence of acute cardiopulmonary disease. Electronically Signed: Jeyson Hilliard MD at 7:26 EDT Reading Location ID and State: [facility] / [place] , Service support ,
[2023-05-02 07:00] LABS: Absolute Lymphocyte Count 2.53 X10^3/uL (0.83-4.51); Absolute Neutrophil Count 4.2 X10^3/uL (2.0-7.7); Basophil# 0.02 X10^3/uL; Basophil% 0.3 % (0-1); Eosinophils% 1.3 % (0-5); Hematocrit 46.8 % (40-54); Hemoglobin 15.1 g/dL (13.0-16.5); Lymphocyte # 2.53 X10^3/ul (0.83-4.51); Lymphocyte % 33.6 % (19-41); Mean Corp Hgb Conc 32.3 g/dL (32-36); Mean Corpuscular Hgb 31.1 pg (27.0-32.0); Mean Corpuscular Volume 96.5 fL (80-94); Mean Platelet Vol. 10.1 fl (6.2-12.0); Monocyte# 0.71 X10^3/uL; Monocyte% 9.4 % (0-10); NRBC Flagged by Analyzer 0 % (0-5); Neutrophil # 4.16 X10^3/uL (2.7-7.7); Neutrophil % 55.1 % (47-70); Platelet Count 186 K/mm3 (150-450); RBC Distribution Width CV 13.2 % (11.6-14.6); RBC Distribution Width SD 47.2 fl (35.1-43.9); Red Blood Count 4.85 M/mm3 (4.6-6.2); White Blood Count 7.5 K/mm3 (4.4-11.0)
--- NOTE | 2023-05-02 07:12 | EX.ED.DYSGE1 ---
HPI History of Present Illness Chief Complaint: Chest Pain Informant: patient Narrative Narrative: Presents with varying heart rate on his watch monitor. This patient has a history of intermittent atrial fibrillation for many years. When he has issues he will take as needed flecainide. The longest he has ever been in atrial fibrillation is 12 hours. He is on baby aspirin. He is on 50 of metoprolol. Flecainide is just as needed. 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 Since then his watch has been telling him that occasionally he is bradycardic in the mid to upper 30s heart rate. He states he has no symptoms at all with this. He does not feel weak or sick or lightheaded. He is not getting chest pain. He does note that occasionally he has symptoms of some left arm aching but it does not sound like they are correlated with the other symptoms. Patient does have a family history of heart disease with his or having heart disease starting in the mid 50s. But this patient has never actually been treated for high blood pressure, cholesterol, heart disease he is a non-smoker. States he has had multiple heart caths. His most recent was about 3 years ago. He has never required a stent. [facility] Medical History Abnormal stress electrocardiogram test using treadmill Alcohol use Atrial fibrillation by electrocardiogram Body aches after vaccination Cardiology follow-up encounter Chest pain Contact with or suspected exposure to other viral communicable disease COVID-19 Gastric reflux GERD (gastroesophageal reflux disease) History of echocardiogram History of irregular heartbeat History of steroid therapy History of stress test Non-smoker Obesity PAF (paroxysmal atrial fibrillation) Paroxysmal supraventricular tachycardia Premature ventricular contractions Wears contact lenses Wears glasses Home Medications aspirin 81 mg tablet,delayed release (Adult Aspirin Regimen) 81 mg PO QDAY #30 tabs 08/11/21 [Rx Last Taken 06/14/22 08:00] metoprolol succinate 50 mg tablet,extended release 24 hr 50 mg PO DAILY #90 tabs 08/17/22 [Rx Last Taken Unknown] flecainide 100 mg tablet 100 mg PO Q12H PRN tachycardia 03/16/23 [History Last Taken Unknown] omeprazole 40 mg capsule,delayed release 40 mg PO DAILY PRN GERD 04/13/23 [History Last Taken Unknown] Allergy/AdvReac Type Severity Reaction Status Date / Time lactose [lactose intolerant] AdvReac GI ISSUES Verified 05/02/23 06:31 Family History Mother Colon cancer, Onset Age: 50 Father CAD (coronary artery disease), Onset Age: 70 CABG age 55, couple [place] Diabetes Brother Diabetes Hypertension Surgical History History of cardiac catheterization History of electrophysiologic study (2006) History of left heart catheterization (09/13/18) History of wisdom tooth extraction Normal colonoscopy (2018) Social History Smoking Status: Never smoker alcohol intake: current alcohol intake frequency: holidays/special occasions only substance use type: does not use caffeine: Yes Type: coffee Number of servings: 2 ROS ROS ED ROS Narrative A complete review of systems was performed and is negative except as documented in the history of present illness. Some specific details below. Constitutional: No recent fevers or chills. ENT: No difficulty swallowing. No swelling. No pain. No reflux symptoms. CV: See history of present illness. Respiratory: Not short of breath or coughing. GI: No abdominal pain. No nausea vomiting diarrhea. : No frequency dysuria or hematuria. Musculoskeletal: No recent trauma. No pains. No swelling. Skin: No rash. Nondiaphoretic. Neuro: No weakness or numbness. Endocrine: No polyuria or polydipsia. EXAM Physical Exam Narrative Exam Narrative: CONSTITUTIONAL: Patient is nontoxic in appearance. The patient looks comfortable. Work of breathing looks normal. HEENT: No notable trauma. Mucous membranes moist. No indication of pain with swallowing. EYES: No conjunctival injection. No proptosis. NECK:No JVD. No stridor. CARDIOVASCULAR: Regular rate. Regular rhythm. No notable murmur. No JVD. RESPIRATORY: No respiratory distress. Breathing is unlabored. No wheezes. No rhonchi. No rales. No pain with a deep breath. No chest wall tenderness. GASTROINTESTINAL: Not distended. Bowel sounds are normal. No tenderness. GENITOURINARY: No CVA tenderness. MUSCULOSKELETAL: Atraumatic. No peripheral edema. No asymmetry. No distended veins. NEUROLOGICAL: Patient is alert and appropriate. No focal deficit noted. SKIN: No noted rashes. No diaphoresis. PSYCHIATRIC: Patient is calm. Mood is appropriate. Const Vital Signs: 05/02/23 06:31 05/02/23 06:36 05/02/23 06:48 Temperature 96.4 F L Temperature Source Temporal Pulse Rate 78 Respiratory Rate 16 Respiratory Effort Normal Blood Pressure 128/84 H Blood Pressure Mean 98 Pulse Ox 97 Oxygen Delivery Method Room Air 05/02/23 07:50 Temperature Temperature Source Pulse Rate 79 Respiratory Rate 14 Respiratory Effort Blood Pressure 116/62 Blood Pressure Mean 80 Pulse Ox 92 Oxygen Delivery Method Room Air MDM MDM MDM Narrative Medical decision making narrative: Patient CBC shows normal white count hemoglobin and platelets. Patient's electrolytes show a slight bump in the baseline creatinine and high limit BUN to creatinine ratio. He was given some IV fluids. Calcium and potassium were normal Patient's magnesium was also normal at 2.4. Patient's troponin was normal at 8. My independent interpretation of the patient's single view AP chest x-ray shows mild chronic changes but no acute prior. Final reading no radiographic dense of acute cardiopulmonary disease I rechecked the patient. He had had a an alarm on his watch that showed heart rate in the high 30s. I went back to that time on the monitor and he was in a run of bigeminy. But he had no further symptoms. I do not think we need to adjust his medications based on this. He is having a Holter monitor over the weekend. 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 I think making medication adjustments based on this Holter monitor is appropriate since we are having numbers on the watch that are abnormal but were not having symptoms acutely associated with them. Lab Data Attestation: I reviewed the patient's lab results. Labs: Laboratory Results - last 24 hr 05/02/23 06:45 WBC 7.5 RBC 4.85 Hgb 15.1 Hct 46.8 MCV 96.5 H MCH 31.1 MCHC 32.3 RDW Std Deviation 47.2 H RDW Coeff of Tiburcio 13.2 Plt Count 186 MPV 10.1 Immature Gran % (Auto) 0.300 Neut % (Auto) 55.1 Lymph % (Auto) 33.6 Loup % (Auto) 9.4 Eos % (Auto) 1.3 Baso % (Auto) 0.3 Absolute Neuts (auto) 4.2 Absolute Lymphs (auto) 2.53 Nucleated RBC % 0 Sodium 142 Potassium 4.0 Chloride 110 H Carbon Dioxide 27.0 Anion Gap 5 BUN 25 H Creatinine 1.28 Estim Creat Clear Calc 71.54 Est GFR (MDRD) Af Amer 72 Est GFR (MDRD) Non-Af 60 BUN/Creatinine Ratio 19.5 Glucose 118 H Calcium 8.7 Magnesium 2.4 Troponin I High Sens 8 Radiography Diagnostic Testing: Clinical Impression(s) from Imaging Studies Chest X-Ray 05/02/23 06:55 IMPRESSION: No radiographic evidence of acute cardiopulmonary disease. Electronically Signed: Jeyson Hilliard MD at 7:26 EDT , EKG Initial EKG: Comments: My independent interpretation of the patient's EKG done for bradycardia on his watch shows sinus rhythm with multiple PVCs. This section of his EKG actually shows bigeminy. No acute ST elevation or depression. SC interval, QRS duration and QTc are normal. Discharge Plan Triage Chief Complaint: Chest Pain ED Provider: Azael Coleman Dx/Rx/DC Orders Clinical Impression: Frequent PVCs, History of atrial fibrillation Instructions: ED About Arrhythmias Prescriptions: No Action aspirin [Adult Aspirin Regimen] 81 mg tablet,delayed release (DR/EC) 81 mg PO QDAY Qty: 30 11RF omeprazole 40 mg capsule,delayed release(DR/EC) 40 mg PO DAILY PRN (Reason: GERD) flecainide 100 mg tablet 100 mg PO Q12H PRN (Reason: tachycardia) metoprolol succinate 50 mg tablet extended release 24 hr 50 mg PO DAILY Qty: 90 3RF Primary Care Provider: Kate Atwood Referrals: Jeff Perez MD [Med Staff - Active Staff] - Keep Agustín appointment Kate Atwood DO [Primary Care Provider] - Disposition Disposition: Home, Self Care
[2023-05-02 07:18] LABS: Anion Gap 5 (5-15); BUN 25 mg/dL (7-18); BUN/Creat Ratio 19.5 RATIO (10-20); Calcium,Total 8.7 mg/dL (8.5-10.1); Chloride 110 mmol/L (98-107); Creatinine, Serum 1.28 mg/dL (0.70-1.30); EST Glomerular Filtration Rate 60 mL/min (>60); Est Glom Filt Rate - Afr Amer 72 mL/min (>60); Estimated Creatinine Clearance 71.54 ml/min; Glucose 118 mg/dL (74-106); Sodium Level 142 mmol/L (136-145); Troponin-I HS (w/2H Reflex) 8 pg/mL (3.0-78.0)
[2023-05-02] MEDS: 0.9% Normal Saline (1000mL) 500 ML 1000 ML IV (07:34)
[2023-05-02 07:42] LABS: Magnesium 2.4 mg/dL (1.6-2.6)
[2023-05-02 07:50] VITALS: BP 116/62; PULSE 79; RESP 14; O2SAT 92
[2023-05-02 08:11] VITALS: BP 101/76
[2023-05-02 08:56] LABS: Reflex Troponin-HS? (from REC) Y
== END 2023-05-02 08:12 | disposition home or self-care (01) ==
PROVIDERS: Emergency Provider Emergency Medicine; PCP Family Medicine; Visit Provider Emergency Medicine
DX: I49.3 Ventricular premature depolarization (principal); I48.0 Paroxysmal atrial fibrillation; K21.9 Gastro-esophageal reflux disease without esophagitis; Z79.82 Long term (current) use of aspirin; Z79.899 Other long term (current) drug therapy; Z86.16 Personal history of COVID-19
CPT/HCPCS: 71045; 80048; 83735; 84484; 85025; 93005; 96360; 99284; J7040; A4216

== ENCOUNTER → 2023-05-04 | Outpatient (CLI) | payer OTHER, SELFPAY | END | disposition home or self-care (01) | LOC: PSN 08:47 | PROVIDERS: PCP Family Medicine; Referring Provider Internal Medicine Cardiovascular Disease; Visit Provider Internal Medicine Cardiovascular Disease | DX: I48.0 Paroxysmal atrial fibrillation (principal); I47.10 Supraventricular tachycardia, unspecified | CPT/HCPCS: 93225; 93226 ==

== ENCOUNTER → 2023-05-28 | Outpatient (CLI) | payer OTHER, SELFPAY ==
--- NOTE | 2023-05-28 12:56 | PFTCOMP ---
COMPLETE PULMONARY FUNCTION TEST INTERPRETATION Brief HPI: Patient is a 67-year-old male, currently under the care of Dr. Atwood, who presents to [facility] for complete pulmonary function tests secondary to diagnosis of dyspnea. Respiratory therapist reports good effort and reproducible results. Interpretation: Forced expiration spirometry shows a mild large airways obstructive ventilatory defect with an FEV1 of 78% predicted. There is no significant bronchodilator response by strict ATS criteria. Spirograms are of good quality and plateau slowly, indicating slowly emptying areas of the lungs. The respiratory flow volume loop shows decreased expiratory flow rates at all lung volumes consistent with airway obstruction. Lung volumes by body plethysmography show a slightly decreased total lung capacity at 6.96 L, 83% predicted. All other lung volumes are within normal limits. Diffusion capacity by carbon monoxide is decreased at 60% predicted. The airway resistance is normal. No previous pulmonary function tests were available for review. Impression: Irreversible mild mixed ventilatory defect with a disproportionate reduction in diffusion capacity
== END | disposition home or self-care (01) ==
LOC: PSN 06:51
PROVIDERS: PCP Family Medicine; Referring Provider Family Medicine; Visit Provider Family Medicine
DX: R06.02 Shortness of breath (principal)
CPT/HCPCS: 94060; 94726; 94729

== ENCOUNTER → 2023-08-15 | Outpatient (CLI) | payer OTHER, SELFPAY ==
--- OUTSIDE RECORDS SUMMARY | 2023-08-15 06:58 | XMS RPT_ITS | CCD ---
Author Name Unknown Address [address] [place] [address] Organization [facility] Care Team Providers Care Document Clerk Name Role Phone JR GONZALEZ Unavailable Unavailable JOVANI BEE Unavailable Unavailable JOVANI BEE Unavailable Unavailable CHEIKH ATWOOD Referring Unavailable CHEIKH ATWOOD Primary Care Unavailable KAMAR MITTAL Attending Unavailable Problems Active Problems Problem Classification Problem Date Documented Date Episodic/Chronic Cardiac dysrhythmias (3 sources) Ventricular premature depolarization; Translations: [Paroxysmal atrial fibrillation] Onset: 06-13-2023 Chronic Other aftercare (2 sources) Other assisted (current) drug therapy; Translations: [prison current use of antiarrhythmic drug] Onset: 06-28-2023 Episodic Other aftercare (1 source) Encounter for therapeutic drug level monitoring; Translations: [Encounter for monitoring flecainide therapy] Onset: 06-28-2023 Episodic Residual codes; unclassified (1 source) Other specified personal risk factors, not elsewhere classified; Translations: [At risk for stroke] Onset: 06-28-2023 Episodic Unclassified (1 source) Unknown / UNK(Unknown) Onset: 07-10-2017 Past or Other Problems Problem Classification Problem Date Documented Da te Episodic/Chronic Medical examination/evaluation (2 sources) Encounter for general adult medical examination without abnormal findings; Translations: [Encounter for general adult medical examination without abnormal findings] Onset: 01-31-2017 Episodic Unclassified (2 sources) Encounter for screening for malignant neoplasm of prostate; Translations: [Encounter for screening for malignant neoplasm of prostate] Onset: 01-31-2017 Episodic Unclassified (1 source) [facility] U[facility] Onset: 07-10-2017 Results Test Name Value Interpretation Reference Range Facil ity Encounters Encounter Date Encounter Type Care Provider Facility Start: 06-29-2023 End: 06-29-2023 ambulatory CHEIKH ATWOOD Facility:[facility] Start: 07-10-2017 Ambulatory MADHURI-HELEN GONZALEZ Jimi ty:[id number] Start: 01-31-2017 End: 02-04-2017 Ambulatory JOVANI BEE Facility:[facility] Payers Date Payer Category Payer Private Health Insurance [id number] 2017 Unknown [id number] Self-pay [id number] Progress note 06-29-2023 Note Date & Type Note Facility 06-29-2023 Note HNO ID: [id number] Author: Kamar Mittal MD Service: ? 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 He has history of premature ventricular contractions (PVCs) and more recently paroxysmal atrial fibrillation. He states he had stress induced PVCs diagnosed at about age [age] years old, was noted on a stress test, no symptoms. He underwent cardiac catheterization and EP study, both unremarkable. He was treated with metoprolol which he has taken consistently over the years. In the past year, his Apple Watch was indicating episodes of atrial fibrillation. No symptoms. Episodes would have minute or two duration. Longest episode was about 24 hours, occurred just recently in April 2023, he presented to [facility] ED. He has never needed electrical or pharmacological cardioversion. Episodes can be quite variable in frequency and duration, he would sometimes have multiple episodes during the day, or sometimes only once a week or even less. Stress seems to be a trigger for the symptoms. He has been treated with Buspar, since about two weeks ago, seems to be better. Last episode was 06/13/2023. At some point he was prescribed flecainide, to take as needed for longer duration episodes. He has not had to take the flecainide very often. He was also having some exertional shortness of breath, not related to arrhythmia episodes. He underwent evaluation including PFTs, evaluated by assurance senior manager. He is going to be scheduled for sleep study, is not aware of whether he snores or not. A new issue occurred just recently, his Apple Watch started indicating bradycardia, about 2 months ago. He had cardiac monitoring, had frequent PVCs, about 30% burden. Again, completely asymptomatic. Cardiac testing including an echocardiogram was unremarkable. He denies chest pain, orthopnea, palpitations, PND, syncope. I have confirmed and edited as necessary, the PFSH and ROS obtained by others. PAST MEDICAL HISTORY Diagnosis Date At risk for stroke Atrial fibrillation (HCC) prison current use of antiarrhythmic drug Paroxysmal atrial fibrillation (HCC) 06/13/2023 PVC (premature ventricular contraction) frequent PAST SURGICAL HISTORY Procedure Laterality Date COLONOSCOPY SCREENING 2017 normal colonoscopy ECHOCARDIOGRAM 08/31/2021 EPS: EP STUDY 2006 [facility] LEFT HEART CATH,PERCUTANEOUS 09/13/2018 left heart catheterization ORAL SURGERY PROCEDURE wisdom tooth extraction STRESS TEST 09/19/2018 SOCIAL HISTORY Social History Tobacco Use Smoking status: Never Smokeless tobacco: Former Types: Snuff Vaping Use Vaping Use: Never used Substance Use Topics Alcohol use: Not Currently Comment: social Drug use: Not Currently FAMILY HISTORY Problem Relation Age of Onset Gastric Cancer Mother Coronary Artery Disease Father 2 CABG, multiple MIs Diabetes Father diet controlled Heart disease Father Heart Attack Father Sudden Cardiac Father No Known Problems Brother No Known Problems Brother Breast Cancer Maternal Grandmother Parkinson?s Disease Maternal Grandfather ALLERGIES: ALLERGIES No Known Allergies MEDICATIONS: metoprolol succinate ER (TOPROL XL) 100 mg Take 100 mg by mouth once daily. flecainide (TAMBOCOR) 100 mg tablet Take 100 mg by mouth two times a day as needed (arrhythmia). OMEPRAZOLE ORAL Take 40 mg by mouth once daily. Aspirin 81 mg ORAL Tab Take 81 mg by mouth. cyclobenzaprine 10 mg ORAL tablet Take 1 tablet by mouth three times daily as needed for Muscle Spasm. REVIEW OF SYSTEMS: Review of Systems Constitutional: Positive for malaise/fatigue. Negative for chills, fever and weight loss. Respiratory: Positive for shortness of breath. Negative for cough, hemoptysis, sputum production and wheezing. Cardiovascular: Negative for chest pain, palpitations, orthopnea, claudication, leg swelling and PND. Gastrointestinal: Negative for abdominal pain, blood in stool, melena, nausea and vomiting. Genitourinary: Negative for dysuria and hematuria. Musculoskeletal: Negative for falls and myalgias. Skin: Negative for rash. Neurological: Negative for dizziness, focal weakness, seizures and loss of consciousness. PHYSICAL EXAMINATION: BP 113/75 Pulse 60 Ht (more content not included)... [facility] Summary Purpose Family History No Family History Records FoundNo Family History Records FoundNo Family History Records Found Advance Directives No Advanced Directives Records FoundNo Advanced Directives Records FoundNo Advanced Directives Records Found Additional Source Comments (unrecognized sect ion and content) No Status Records FoundNo Status Records FoundNo Status Records Found INFORMATION SOURCE (unrecogn ized section and content) DATE CREATED AUTHOR AUTHOR'S ORGANIZ ATION 01/02/2018 [facility] ([place]) DATE CREATED AUTHOR AUTHOR'S ORGANIZ ATION 06/30/2023 [facility] FOR RECORDS PERTAINING TO PATIENTS WHO ARE OR HAVE BEEN ENROLLED IN A CHEMICAL DEPENDENCY/SUBSTANCEABUSE PROGRAM, SOME INFORMATION MAY BE OMITTED. This clinical summary was aggregated from multiple sources. Caution should be exercised in using it in the provision of clinical care. This summary normalizes information from multiple sources, and as a consequence, information in this document may materially change the coding, format and clinical context of patient data. In addition, data may be omitted in some cases. CLINICAL DECISIONS SHOULD BE BASED ON THE PRIMARY CLINICAL RECORDS. [facility]. provides no warranty or guarantee of the accuracy or completeness of information in this document.
== END | disposition home or self-care (01) ==
LOC: PSN 06:55
PROVIDERS: PCP Family Medicine; Referring Provider Nurse Practitioner Family; Visit Provider Nurse Practitioner Family
DX: I49.3 Ventricular premature depolarization (principal)
CPT/HCPCS: 93225; 93226

== ENCOUNTER 2023-12-19 07:13 | Emergency (ER) | payer OTHER, SELFPAY ==
[2023-12-19 07:14] VITALS: BP 135/119; PULSE 107; PULSE 97; RESP 14; TEMP 35.8; O2SAT 93; BMI 33.3
[2023-12-19 07:29] VITALS: O2SAT 98
--- NOTE | 2023-12-19 07:29 | EKG12_ITS ---
Test Reason : Blood Pressure : / mmHG Vent. Rate : 115 BPM Atrial Rate : 000 BPM P-R Int : 000 ms QRS Dur : 082 ms QT Int : 324 ms P-R-T Axes : 000 039 -09 degrees QTc Int : 448 ms Atrial fibrillation with rapid ventricular response with premature ventricular or aberrantly conducte d complexes Nonspecific ST abnormality Abnormal ECG Confirmed by ALLI HOOPER, CALLY ([id number]), editor department TACHO CASH ([id number]) on 12/21/2023 7:26:22 AM Referred By: VIKKI Confirmed By:CALLY CARSON MD
--- NOTE | 2023-12-19 07:31 | EDS_ITS ---
HPI History of Present Illness Chief Complaint: Palpitations Narrative Narrative: 68-year-old male, longstanding history of paroxysmal atrial fibrillation presents with palpitations and feelings of anxiety that has had since 10 PM. States he usually does not feel when he goes into atrial fibrillation, unless his watch tells him. Yesterday evening around 10 PM, about 9 hours ago, he went into atrial fibrillation and throughout the night had a heart rate as high as 125 to 135 bpm. He usually flips out of atrial fibrillation on his own. While he does not take a blood thinner such as Xarelto or Eliquis and only a baby aspirin, states he usually flips out of it after a few hours. Last time he was in it was last month. Additionally, a few months ago he was in it for about 12 hours or longer and takes as needed flecainide when he needs to. He has not had to do that in quite a few months. He usually sees the [facility] for cardiology. He presents because of the continued atrial fibrillation. He did take his metoprolol 50 mg extended release this morning. [facility] Medical History Wears glasses Wears contact lenses Alcohol use History of steroid therapy Gastric reflux Non-smoker History of echocardiogram History of stress test Cardiology follow-up encounter History of irregular heartbeat PAF (paroxysmal atrial fibrillation) Atrial fibrillation by electrocardiogram COVID-19 Contact with or suspected exposure to other viral communicable disease Body aches after vaccination Chest pain Obesity Premature ventricular contractions GERD (gastroesophageal reflux disease) Paroxysmal supraventricular tachycardia Abnormal stress electrocardiogram test using treadmill Home Medications ?Medication ?Instructions ?Recorded ?Last Taken ?Type aspirin 81 mg tablet,delayed 81 mg PO QDAY #30 tabs 08/11/21 06/14/22 08:00 Rx release (Adult Aspirin Regimen) flecainide 100 mg tablet 100 mg PO Q12H PRN tachycardia 03/16/23 Unknown History omeprazole 40 mg capsule,delayed 40 mg PO DAILY PRN GERD 04/13/23 Unknown History release metoprolol succinate 100 mg 100 mg PO DAILY #90 tabs 05/10/23 Unknown Rx tablet,extended release 24 hr buspirone 10 mg tablet 10 mg PO DAILY 06/19/23 Unknown History Allergy/AdvReac Type Severity Reaction Status Date / Time lactose (lactose intolerant) AdvReac GI ISSUES Verified 12/19/23 07:13 Family History Mother Colon cancer, Onset Age: 50 Father CAD (coronary artery disease), Onset Age: 70 CABG age 55, couple ID Diabetes Brother Diabetes Hypertension Surgical History History of cardiac catheterization Normal colonoscopy (2017) History of electrophysiologic study (2006) History of wisdom tooth extraction History of left heart catheterization (09/13/18) Social History Smoking Status: Never smoker alcohol intake: current alcohol intake frequency: holidays/special occasions only substance use type: does not use caffeine: Yes Type: coffee Number of servings: 2 ROS ROS ED ROS Narrative Constitutional: No fever, no chills. HEENT: No sore throat. No neck pain. No loss of vision. No rhinorrhea. Cardiovascular: No chest pain. Positive palpitations. No pedal edema. Respiratory: No cough, no shortness of breath. Abdominal: No abdominal pain. No nausea. No vomiting. Genitourinary: No dysuria. No hematuria. Musculoskeletal: No myalgias. No arthralgias. Neurologic: No headaches. No dizziness. No lightheadedness. Skin: No rash. No change in color. Psychiatric: No depression. Feelings of anxiety manifested in chest. EXAM Physical Exam Narrative Exam Narrative: Afebrile. Vital signs noted. HEENT: Normocephalic. Atraumatic. PERRL, EOMI. Neck soft and supple. No point tenderness or step off. Cardiovascular: Irregularly irregular tachycardia with heart rate 108 to 135 bpm, no murmurs, rubs, or gallops appreciated. Respiratory: No tachypnea. Lungs clear to auscultation bilaterally. Gastrointestinal: Abdomen soft, nontender, with normoactive bowel sounds. No rebound or guarding. Neurological: Awake. Alert. Nonfocal, nonlateralizing. Skin: No rash. Normal color. No pallor. Musculoskeletal: No pedal edema. Full range of motion extremities. Const Vital Signs: 12/19/23 07:14 12/19/23 07:14 12/19/23 07:29 Temperature 96.5 F L 96.5 F L Temperature Source Temporal Temporal Pulse Rate 97 107 H Respiratory Rate 14 14 Blood Pressure 135/119 H 135/119 H Blood Pressure Mean 124 124 Pulse Ox 93 93 98 Oxygen Delivery Method Room Air Room Air Room Air 12/19/23 08:13 12/19/23 08:55 Temperature Temperature Source Pulse Rate 104 H 89 Respiratory Rate 18 18 Blood Pressure 96/78 89/67 L Blood Pressure Mean 84 74 Pulse Ox 98 98 Oxygen Delivery Method Room Air Room Air MDM MDM MDM Narrative Medical decision making narrative: I reviewed the patient's prior records. He wore a Holter monitor and August of this year, he had a lot of ventricular ectopic beats and periods of bigeminy and trigeminy. I reviewed his prior ED record and back in April of last year, he was feeling the same way. At times he is rate controlled. He will be given an additional dose of metoprolol 5 mg intravenously and I will check his electrolytes for dehydration or other imbalance. EKG was obtained and interpreted by myself independently as atrial fibrillation at [address] changes. No STEMI. I reviewed his laboratory work and he has normal white count of 10.3, hemoglobin 14.9 and hematocrit 44.3 with normal platelet count of 232. Electrolyte panel shows chloride slightly elevated at 108 which I think is nonspecific, slightly elevated creatinine of 1.32 with a BUN 17. While glucose is elevated at 115, he has a normal anion gap of 6. Magnesium normal at 2.3. High-sensitivity troponin is 64. He was given an additional dose of metoprolol 5 mg intravenously which lowered his heart rate into the 90s and as high as 108. As he is not anticoagulated and he does not have an emergent condition, he cannot be cardioverted. He did have slight drop in his blood pressure which he states happens, but he is mentating. I discussed patient with his junior loan processor, Dr. Perez, who agrees with discharge home. The patient should start his flecainide 100 mg twice a day and follow-up with cardiology. I feel he can be discharged safely home with follow-up. He currently is rate controlled with his atrial fibrillation. Return instructions to the emergency department were reviewed. Patient comfortable with discharge and follow-up. Disposition discharged in stable condition. History & Record Review Discussion w/independent historian: Patient Additional record(s) reviewed:: Prior outpatient record and Prior labs Lab Data Attestation: I reviewed the patient's lab results. Labs: Laboratory Results - last 24 hr 12/19/23 07:27 WBC 10.3 RBC 4.72 Hgb 14.9 Hct 44.3 MCV 93.9 MCH 31.6 MCHC 33.6 RDW Std Deviation 44.7 H RDW Coeff of Tiburcio 13.0 Plt Count 232 MPV 9.8 Immature Gran % (Auto) 0.700 Neut % (Auto) 57.7 Lymph % (Auto) 31.8 Kerr % (Auto) 8.4 Eos % (Auto) 1.0 Baso % (Auto) 0.4 Absolute Neuts (auto) 6.0 Absolute Lymphs (auto) 3.28 Nucleated RBC % 0 Sodium 140 Potassium 3.6 Chloride 108 H Carbon Dioxide 26.0 Anion Gap 6 BUN 17 Creatinine 1.32 H Estim Creat Clear Calc 80.29 Est GFR (MDRD) Af Amer 70 Est GFR (MDRD) Non-Af 58 L BUN/Creatinine Ratio 12.9 Glucose 115 H Calcium 8.6 Magnesium 2.3 Troponin I High Sens 64 Radiography Diagnostic Testing: Clinical Impression(s) from Imaging Studies Chest X-Ray 12/19/23 07:39 IMPRESSION: Hyperinflation. Stable mild increased markings at the lung bases suggestive of scarring. Electronically Signed: Abel Suarez MD at 8:02 EDT , Discharge Plan Triage Chief Complaint: Palpitations ED Provider: Álvaro Steven Dx/Rx/DC Orders Clinical Impression: PAF (paroxysmal atrial fibrillation), Atrial fibrillation with RVR Instructions: ED AFIB Prescriptions: No Action aspirin [Adult Aspirin Regimen] 81 mg tablet,delayed release (DR/EC) 81 mg PO QDAY Qty: 30 11RF omeprazole 40 mg capsule,delayed release(DR/EC) 40 mg PO DAILY PRN (Reason: GERD) buspirone 10 mg tablet 10 mg PO DAILY flecainide 100 mg tablet 100 mg PO Q12H PRN (Reason: tachycardia) metoprolol succinate 100 mg tablet extended release 24 hr 100 mg PO DAILY Qty: 90 3RF Primary Care Provider: Carole Fuentes Referrals: Carole Fuentes MD [Primary Care Provider] - Jeff Perez MD [Med Staff - Active Staff] - As soon as possible Activity Restrictions/Additional Instructions: Start taking your flecainide 100 mg twice a day. Follow-up with Dr. Perez. Return with chest pain, continuous elevated heart rate, new or worsening symptoms. Print Language: Serbian Disposition Disposition: Home, Self Care
[2023-12-19] MEDS: Metoprolol Tartrate 5 MG/5 ML Vial IV (07:35)
[2023-12-19 07:38] LABS: Absolute Lymphocyte Count 3.28 X10^3/uL (0.83-4.51); Basophil# 0.04 X10^3/uL; Basophil% 0.4 % (0-1); Hematocrit 44.3 % (40-54); Hemoglobin 14.9 g/dL (13.0-16.5); Lymphocyte # 3.28 X10^3/ul (0.83-4.51); Lymphocyte % 31.8 % (19-41); Mean Corp Hgb Conc 33.6 g/dL (32-36); Mean Corpuscular Hgb 31.6 pg (27.0-32.0); Mean Corpuscular Volume 93.9 fL (80-94); Mean Platelet Vol. 9.8 fl (6.2-12.0); Monocyte# 0.87 X10^3/uL; Monocyte% 8.4 % (0-10); NRBC Flagged by Analyzer 0 % (0-5); Neutrophil # 5.97 X10^3/uL (2.7-7.7); Neutrophil % 57.7 % (47-70); Platelet Count 232 K/mm3 (150-450); RBC Distribution Width SD 44.7 fl (35.1-43.9); Red Blood Count 4.72 M/mm3 (4.6-6.2); White Blood Count 10.3 K/mm3 (4.4-11.0)
--- NOTE | 2023-12-19 07:39 | RAD_ITS ---
STUDY: X-RAY CHEST REASON FOR EXAM: Male, 68 years old. Chest pain TECHNIQUE: Single AP portable view of the chest. COMPARISON: Comparison is made with prior study May 02, 2023. FINDINGS: EKG electrodes are seen Hyperinflation. Stable mild increased markings at the lung bases suggest some mild bibasilar scarring. There is no demonstrated pleural abnormality. Normal size heart. Normal mediastinum and tomasa. Normal visualized pulmonary arteries. Normal visualized aortic arch and descending thoracic aorta. There are degenerative changes of the visualized thoracic spine. Normal visualized ribs, clavicles, and shoulders. There is no demonstrated abnormality of the visualized soft tissue structures of the upper abdomen. RAD/Chest 1 View (Portable) IMPRESSION: Hyperinflation. Stable mild increased markings at the lung bases suggestive of scarring. Electronically Signed: Abel Suarez MD at 8:02 EDT ,
[2023-12-19 08:04] LABS: Anion Gap 6 (5-15); BUN 17 mg/dL (7-18); BUN/Creat Ratio 12.9 RATIO (10-20); Calcium,Total 8.6 mg/dL (8.5-10.1); Chloride 108 mmol/L (98-107); Creatinine, Serum 1.32 mg/dL (0.70-1.30); EST Glomerular Filtration Rate 58 mL/min (>60); Est Glom Filt Rate - Afr Amer 70 mL/min (>60); Estimated Creatinine Clearance 80.29 ml/min; Glucose 115 mg/dL (74-106); Magnesium 2.3 mg/dL (1.6-2.6); Potassium 3.6 mmol/L (3.5-5.1); Sodium Level 140 mmol/L (136-145); Troponin-I HS 64 pg/mL (3.0-78.0)
[2023-12-19 08:13] VITALS: BP 96/78; PULSE 104; RESP 18; O2SAT 98
[2023-12-19 08:55] VITALS: BP 89/67; PULSE 89; RESP 18; O2SAT 98
[2023-12-19 09:15] VITALS: BP 92/65; PULSE 88; RESP 18; TEMP 36.8; O2SAT 98
== END 2023-12-19 09:25 | disposition home or self-care (01) ==
PROVIDERS: Emergency Provider Emergency Medicine; PCP Family Medicine; Visit Provider Emergency Medicine
DX: I48.0 Paroxysmal atrial fibrillation (principal); Z86.16 Personal history of COVID-19
CPT/HCPCS: 71045; 80048; 83735; 84484; 85025; 93005; 96374; 99283; A4216

== ENCOUNTER → 2024-12-02 | Outpatient (CLI) | payer MEDICARE, SELFPAY ==
--- NOTE | 2024-12-02 09:21 | RAD_ITS ---
PROCEDURE: CHEST PA AND LATERAL 12/02/2024 REASON FOR EXAM: COUGH TECHNIQUE: Frontal and lateral views of the chest. COMPARISON: None FINDINGS: Hardware: None Heart: The heart size is normal. Mediastinum: The mediastinal contour is unremarkable. Lungs: Hyperinflation. Mild increased linear markings at the lung bases suggestive of mild degree of scarring. Bones: Degenerative changes are identified within the thoracic spine. RAD/Chest PA and Lateral IMPRESSION: Hyperinflation. Mild increased markings at the lung bases suggestive of basila r scarring. Reading Location: [place] [address]
== END | disposition home or self-care (01) ==
LOC: MTRAD 09:21
PROVIDERS: PCP Family Medicine; Referring Provider Physician Assistant; Visit Provider Physician Assistant
DX: R05.9 Cough, unspecified (principal)
CPT/HCPCS: 71046

== ENCOUNTER → 2024-12-05 | Outpatient (CLI) | payer MEDICARE, SELFPAY ==
[2024-12-05 19:50] LABS: Absolute Neutrophil Count 6.5 X10^3/uL (2.0-7.7); Basophil# 0.02 X10^3/uL; Basophil% 0.2 % (0-1); Eosinophil# 0.15 X10^3/uL; Eosinophils% 1.6 % (0-5); Hematocrit 43.4 % (40-54); Hemoglobin 14.6 g/dL (13.0-16.5); Lymphocyte % 20.5 % (19-41); Mean Corp Hgb Conc 33.6 g/dL (32-36); Mean Corpuscular Hgb 31.5 pg (27.0-32.0); Mean Corpuscular Volume 93.5 fL (80-94); Mean Platelet Vol. 9.7 fl (6.2-12.0); Monocyte# 0.68 X10^3/uL; Monocyte% 7.3 % (0-10); NRBC Flagged by Analyzer 0 % (0-5); Neutrophil # 6.47 X10^3/uL (2.7-7.7); Platelet Count 225 K/mm3 (150-450); RBC Distribution Width SD 43.8 fl (35.1-43.9); Red Blood Count 4.64 M/mm3 (4.6-6.2); White Blood Count 9.3 K/mm3 (4.4-11.0)
[2024-12-05 20:47] LABS: ALB/GLOB Ratio 1.4 RATIO (0.9-2.4); AST(SGOT) 33 U/L (<=37); Alanine Aminotransfer ALT/SGPT 28 U/L (<=46); Albumin, Serum 4.5 g/dL (3.4-4.8); Alkaline Phosphatase 81 U/L (40-129); Anion Gap 12 (5-15); BUN 12 mg/dL (4-19); BUN/Creat Ratio 9.4 RATIO (10-20); Calcium,Total 9.3 mg/dL (7.6-11.0); Carbon Dioxide 26.7 mmol/L (21.0-32.0); Chloride 96 mmol/L (98-108); Cholesterol 134 mg/dL (<=200); Creatinine, Serum 1.27 mg/dL (0.70-1.20); EST Glomerular Filtration Rate 62 (>60); Globulin 3.2 g/dL (2.2-4.2); Glucose 104 mg/dL (70-99); High Density Lipoprotein 38 mg/dL; Low Density Lipoprotein Calc. 77 mg/dL; PSA,Total - Annual Screen 1.47 ng/mL (0.02-4.00); Potassium 3.4 mmol/L (3.3-5.1); Protein, Total 7.7 g/dL (5.9-8.4); Sodium Level 135 mmol/L (133-145); Total Bilirubin 0.81 mg/dL (0.00-1.30); Triglycerides 99 mg/dL; Very Low Density Lipoprotein 20 mg/dL (5-40); Vitamin D,25 Hydroxy 20.2 ng/mL (30-100); cholesterol:hdl ratio screen 3.55
[2024-12-05 23:10] LABS: CRP 3.59 mg/L (0.0-3.0)
[2024-12-08 16:08] LABS: ANTINUCLEAR ANTIBODIES DIRECT Negative (Negative)
== END | disposition home or self-care (01) ==
LOC: MTLAB 14:37
PROVIDERS: PCP Family Medicine
DX: R05.9 Cough, unspecified (principal); F41.1 Generalized anxiety disorder; Z12.5 Encounter for screening for malignant neoplasm of prostate; Z86.79 Personal history of other diseases of the circulatory system
CPT/HCPCS: 36415; 80053; 80061; 82306; 84153; 85025; 86038; 86140; G0103